=== PATIENT | female | born 1960 | race Caucasian/White ===

== ENCOUNTER 2017-02-19 14:38 | Emergency (ER) | payer OTHER ==
[~2017-02-19 14:38] MED LIST: PSEUCAP67 PO
[2017-02-19 14:44] VITALS: TEMP 36.6
[2017-02-19] MEDS ORDERED: MoRPHine SULFATE 4 MG/ML 1 ML CARP\\VIAL IV STA ×2 (15:03→17:08)
[2017-02-19] MEDS ORDERED: ONDANSETRON INJ 2 MG/ML 2 ML VIAL IV STA (15:03)
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
[2017-02-19 15:28] VITALS: O2SAT 96
[2017-02-19 15:36] LABS: ISTAT HEMOGLOBIN 14.6 g/dl (12.0-16.0); ISTAT IONIZED CALCIUM 1.21 mmol/l (1.12-1.32)
[2017-02-19] MEDS ORDERED: OPTIRAY 320 IV PRN (16:45)
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
[2017-02-19] MEDS ORDERED: OXYCODONE IR HOME PACK PO STA (17:34)
[2017-02-19] MEDS ORDERED: OXYC1TAB3 PO (17:37)
[2017-02-19 18:03] VITALS: BP 136/98; PULSE 85; O2SAT 97
== END 2017-02-19 18:04 | disposition home or self-care (01) ==
LOC: EDBD 14:38 → C.EDD 14:39
DX: S30.1XXA Contusion of abdominal wall, initial encounter (principal); M54.2 Cervicalgia; R10.9 Unspecified abdominal pain; V44.5XXA Car driver injured in collision with heavy transport vehicle or bus in traffic accident, initial encounter; Y92.488 Other paved roadways as the place of occurrence of the external cause

== ENCOUNTER 2017-02-21 22:02 | Emergency (ER) | payer OTHER ==
[~2017-02-21] VITALS: Ht 165.1 cm; Wt 94.6 kg
[~2017-02-21 22:02] MED LIST changes: +OXYC1TAB3 PO; -PSEUCAP67 PO
[2017-02-21 22:03] VITALS: TEMP 36.9; Ht 165.1 cm; Wt 94.6 kg
[2017-02-21 23:36] LABS: BASO % 0.3 %; BASO ABS # 0.03 K/uL (0-0.2); COMPLETE YES; EOS % 2.9 %; HEMATOCRIT 41.3 % (37-47); IG% 0.4 %; LYMPH % 20.7 %; MEAN CELL VOLUME 89.8 fL (80-100); MEAN CORPUSCULAR HEMOGLOBIN 31.3 pg (25-34); MEAN CORPUSCULAR HGB CONC 34.9 g/dl (32-36); MEAN PLATELET VOLUME 9.9 fL (7.4-10.4); MONO % 8.6 %; NEUT % 67.1 %; PLATELET COUNT 236 K/uL (130-400); WHITE BLOOD COUNT 10.16 K/uL (4.8-10.8)
[2017-02-21 23:37] LABS: URINE APPEARANCE CLOUDY (CLEAR); URINE BILIRUBIN NEG (NEG); URINE COLOR DK YELLOW; URINE EPITHELIAL CELL AUTO >30 /lpf (0-5); URINE NITRITE NEG (NEG); URINE PH 5.5 (4.5-7.5); URINE SPECIFIC GRAVITY 1.029 (1.000-1.030); UROBILINOGEN POS (NEG); ZZUR CULT IF INDIC CLEAN CATCH YES
[2017-02-21 23:44] LABS: MANUAL MICROSCOPIC REQUIRED? NO; REVIEW REQ? NO
[2017-02-21 23:53] LABS: BUN/CREATININE RATIO 20.4 (10-20); CALCIUM 9.2 mg/dl (8.5-10.1); CREATININE 0.98 mg/dl (0.60-1.20); POTASSIUM 3.3 mmol/L (3.5-5.1)
[2017-02-22 00:09] LABS: PREG INTERNAL NEGATIVE QC NEG CLEAR BACKGROUND; PREG INTERNAL POSITIVE QC POS CONTROL LINE
[2017-02-22] MEDS ORDERED: CEPHALEXIN 500MG HOME PACK 1 EA BTL PO ONE (00:45)
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
[2017-02-22] MEDS ORDERED: CEPH500C2 PO (00:59)
[2017-02-22 01:20] VITALS: BP 128/77; PULSE 100; O2SAT 98
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
== END 2017-02-22 01:28 | disposition home or self-care (01) ==
LOC: C.EDB 22:02
DX: S00.05XA Superficial foreign body of scalp, initial encounter (principal); S30.1XXA Contusion of abdominal wall, initial encounter; X58.XXXA Exposure to other specified factors, initial encounter; N39.0 Urinary tract infection, site not specified; E87.6 Hypokalemia; Z82.49 Family history of ischemic heart disease and other diseases of the circulatory system

== ENCOUNTER 2017-04-06 10:56 | Inpatient (IN) | payer OTHER ==
[~2017-04-06] VITALS: Ht 165.1 cm; Wt 95.0 kg
[2017-04-06] MEDS ORDERED: CYCLOBENZAPRINE HCL 10 MG TAB PO STA (11:35)
[2017-04-06] MEDS ORDERED: MoRPHine SULFATE 10 MG/ML CARP/VIAL IM STA (11:35)
[2017-04-06] MEDS ORDERED: DEXAMETHASONE SOD INJ 4 MG/ML VIAL IM STA (11:35)
[2017-04-06] MEDS ORDERED: KETOROLAC TROMETHAMINE 60 MG/2 ML VIAL IM ONE (11:45)
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
--- NOTE | 2017-04-06 13:35 | DIAGNOSTIC IMAGING REPORT ---
LUMBAR SPINE W/O CONTRAST HISTORY: Pain severe LBP down R leg some right leg weakness TECHNIQUE: Multiplanar multisequence MRI of the lumbar spine was performed without the use of contrast. COMPARISON: None. FINDINGS: For the purpose of the report the L5-S1 disc space will be located on axial image 23 of 25. Mild degenerative this changes throughout. Vertebral body stature is normal. No bone marrow replacing process. L1-L2: No significant central canal or neural foraminal narrowing. L2-L3: No significant central canal or neural foraminal narrowing. L3-L4: Mild broad-based disc bulge. Minimal impact anterior thecal sac. Neuroforamina are patent bilaterally. L4-L5: Minimal broad-based disc bulge. Minimal impact anterior thecal sac. Neuroforamina are patent bilaterally. L5-S1: No significant central canal or neural foraminal narrowing. IMPRESSION: 1. Minimal broad-based disc bulges L3-L4 and L4-L5. 2. No evidence for significant compromise of the spinal canal or neural foramina. The above report was generated using voice recognition software. It may contain grammatical, syntax or spelling errors. Electronically signed by: Fish Roche M.D. 04/06/2017 1:34 PM Dictated Date/Time: 04/06/2017 1:30 PM
[2017-04-06] MEDS ORDERED: ONDANSETRON INJ 2 MG/ML 2 ML VIAL IV STA (14:06)
[2017-04-06] MEDS ORDERED: HYDROmorphone INJ 1 MG/ML SYR IV ONE (14:15)
[2017-04-06 14:29] LABS: BASO % 0.5 %; BASO ABS # 0.03 K/uL (0-0.2); COMPLETE YES; EOS % 1.5 %; HEMATOCRIT 41.7 % (37-47); IG% 0.8 %; LYMPH % 11.1 %; LYMPH ABS # 0.67 K/uL (1.2-3.4); MEAN CELL VOLUME 89.9 fL (80-100); MEAN CORPUSCULAR HEMOGLOBIN 30.8 pg (25-34); MEAN CORPUSCULAR HGB CONC 34.3 g/dl (32-36); MEAN PLATELET VOLUME 9.5 fL (7.4-10.4); MONO % 2.7 %; NEUT % 83.4 %; PLATELET COUNT 242 K/uL (130-400); RED BLOOD COUNT 4.64 M/uL (4.2-5.4); WHITE BLOOD COUNT 6.02 K/uL (4.8-10.8)
[2017-04-06 14:47] LABS: ALT/SGPT 47 U/L (12-78); AST/SGOT 20 U/L (15-37); BLOOD UREA NITROGEN 17 mg/dl (7-18); BUN/CREATININE RATIO 21.4 (10-20); CALCIUM 8.9 mg/dl (8.5-10.1); CARBON DIOXIDE 27 mmol/L (21-32); CHLORIDE 103 mmol/L (98-107); CREATININE 0.81 mg/dl (0.60-1.20); GLUCOSE 109 mg/dl (70-99); POTASSIUM 3.9 mmol/L (3.5-5.1); SODIUM 135 mmol/L (136-145)
[2017-04-06 14:50] LABS: ALB/GLOB RATIO 1.1 (0.9-2); ALKALINE PHOSPHATASE 101 U/L (45-117)
[2017-04-06] MEDS ORDERED: ONDANSETRON INJ 2 MG/ML 2 ML VIAL IV PRN (15:15)
[2017-04-06] MEDS ORDERED: ALUMINUM/MAGNESIUM/SIMETH (MAALOX MAX) 30 ML UDC PO PRN (15:15)
[2017-04-06] MEDS ORDERED: ACETAMINOPHEN 325 MG TAB PO PRN (15:15)
[2017-04-06] MEDS ORDERED: OXYCODONE/ACETAMINOPHEN 5-325 TAB PO PRN (15:15)
[2017-04-06] MEDS ORDERED: POLYETHYLENE (MIRALAX) 17 GM PACK PO PRN (15:15)
[2017-04-06] MEDS ORDERED: ZOLPIDEM TARTRATE 5 MG TAB PO PRN (15:15)
[2017-04-06] MEDS ORDERED: PANTOprazole SOD 40 MG TAB PO STA (15:21)
--- NOTE | 2017-04-06 15:31 | History and Physical ---
History & Physical Date of Service Apr 06, 2017. History & Physical intractable LBP with disc bulges L3-L4 and L4-L5. [id number]
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
[2017-04-06] MEDS ORDERED: IV FLUIDS COMPLETED PRN (16:15)
[2017-04-06 16:46] VITALS: BP 143/83; PULSE 71; TEMP 36.6; O2SAT 96
[2017-04-06 16:59] LABS: PROTHROMBIN TIME (PATIENT) 10.2 SECONDS (9.0-12.0)
[2017-04-06 17:02] VITALS: BP 143/83; PULSE 71; TEMP 36.6; Ht 165.1 cm; Wt 95.0 kg
[2017-04-06] MEDS ORDERED: PATIENT'S HEIGHT AND/OR WEIGHT NEEDED SCH (17:30)
[2017-04-06] MEDS: ENOXAPARIN 40 MG/0.4 ML SYR SQ SCH (19:14)
[2017-04-06] MEDS: OXYCODONE/ACETAMINOPHEN 5-325 TAB PO PRN (19:31)
[2017-04-06] MEDS: CYCLOBENZAPRINE HCL 10 MG TAB PO SCH (21:07)
[2017-04-06 22:55] VITALS: BP 124/66; PULSE 68; TEMP 36.5; O2SAT 97
[2017-04-07] MEDS: OXYCODONE/ACETAMINOPHEN 5-325 TAB PO PRN (00:02)
[2017-04-07] MEDS ORDERED: MoRPHine SULFATE 4 MG/ML 1 ML CARP\\VIAL ONE (05:23)
[2017-04-07] MEDS ORDERED: NURSING VERBAL MED ORDER ONE (05:30)
[2017-04-07] MEDS ORDERED: MoRPHine SULFATE 4 MG/ML 1 ML CARP\\VIAL IV PRN (06:00)
[2017-04-07 06:27] LABS: BUN/CREATININE RATIO 21.2 (10-20); CALCIUM 9.8 mg/dl (8.5-10.1); CREATININE 0.95 mg/dl (0.60-1.20); MAGNESIUM 2.6 mg/dl (1.8-2.4); POTASSIUM 4.2 mmol/L (3.5-5.1)
[2017-04-07 06:30] LABS: CHOLESTEROL/HDL RATIO 2.4
[2017-04-07 07:10] VITALS: BP 151/90; PULSE 85; TEMP 36.5; O2SAT 96
[2017-04-07 07:20] LABS: ESTIMATED AVERAGE GLUCOSE 108 mg/dl; HA1C FLAG Normal (Normal)
[2017-04-07] MEDS ORDERED: MoRPHine SULFATE 2 MG/ML CARP IV PRN (10:45)
[2017-04-07] MEDS: PANTOprazole SOD 40 MG TAB PO SCH (11:15)
[2017-04-07] MEDS: CYCLOBENZAPRINE HCL 10 MG TAB PO SCH ×2 (11:15→20:53)
[2017-04-07] MEDS: OXYCODONE HCL IR 5 MG TAB (IMMEDIATE RELEASE) PO PRN ×2 (11:16→18:51)
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
[2017-04-07] MEDS: ACETAMINOPHEN 500 MG TAB PO SCH ×2 (12:40→20:53)
[2017-04-07] MEDS: GABAPENTIN 100 MG CAP PO SCH ×2 (14:38→20:53)
[2017-04-07 14:57] VITALS: BP 158/64; PULSE 68; TEMP 36.4; O2SAT 99
[2017-04-07] MEDS: MoRPHine SULFATE 4 MG/ML 1 ML CARP\\VIAL IV PRN ×2 (16:50→23:58)
[2017-04-07] MEDS: ENOXAPARIN 40 MG/0.4 ML SYR SQ SCH (18:50)
[2017-04-07] MEDS: DEXAMETHASONE 4 MG TAB PO SCH (20:53)
[2017-04-07 23:22] VITALS: BP 133/76; PULSE 68; TEMP 36.7; O2SAT 99
[2017-04-08] MEDS: OXYCODONE HCL IR 5 MG TAB (IMMEDIATE RELEASE) PO PRN ×2 (01:26→07:38)
[2017-04-08] MEDS: ACETAMINOPHEN 500 MG TAB PO SCH ×3 (04:32→20:44)
[2017-04-08] MEDS: MoRPHine SULFATE 4 MG/ML 1 ML CARP\\VIAL IV PRN (04:38)
[2017-04-08 07:31] VITALS: BP 144/89; PULSE 86; TEMP 36.7; O2SAT 98
[2017-04-08] MEDS: CYCLOBENZAPRINE HCL 10 MG TAB PO SCH ×2 (08:33→20:44)
[2017-04-08] MEDS: GABAPENTIN 100 MG CAP PO SCH ×3 (08:33→20:44)
[2017-04-08] MEDS: DEXAMETHASONE 4 MG TAB PO SCH ×2 (08:33→20:44)
[2017-04-08] MEDS: PANTOprazole SOD 40 MG TAB PO SCH (08:33)
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
[2017-04-08] MEDS: SODIUM CHLORIDE 0.9% 1000ML 1,000 ML IV SCH (12:56)
[2017-04-08] MEDS ORDERED: NALOXONE HCL 0.4 MG/1 ML VIAL/CARP IV PRN (13:00)
--- NOTE | 2017-04-08 13:44 | Anesthesiology Progress Note ---
Anesthesia Progress Note Date of Service Apr 08, 2017. Progress Notes This is a 56y/o w obese female presenting for lumbar spine decompression/ discectomy for disc herniation.PMHx is sig for IRBBB on old EKG(will repeat) and radiculopathy to right leg.Discussed anesthesia w/ pt,risks vs benefits,all questions answered.Informed consent obtained. ASA 2
[2017-04-08] MEDS: HYDROmorphone HCL 0.5MG/ML 50 ML CASSETTE IV PRN ×3 (14:11→23:15)
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
--- NOTE | 2017-04-08 14:42 | DIAGNOSTIC IMAGING REPORT ---
LUMBAR SPINE 2 OR 3 VIEWS CLINICAL HISTORY: back pain, standing views COMPARISON STUDY: Lumbar spine MRI 04/06/2017. FINDINGS: No fracture or subluxation. Mild disc space narrowing at L5-S1 and L4-L5, unchanged. Small endplate osteophytes seen within the lumbar spine. IMPRESSION: 1. No fracture or subluxation within the lumbar spine. 2. Mild degenerative disc disease within the lower lumbar spine. Electronically signed by: Jose Antonio Jimenez M.D. 04/08/2017 2:41 PM Dictated Date/Time: 04/08/2017 2:39 PM
[2017-04-08] MEDS: MAGNESIUM HYDROXIDE SUSP 30 ML UDC PO PRN (14:46)
[2017-04-08 15:01] VITALS: BP 147/89; PULSE 84; TEMP 36.9; O2SAT 94
[2017-04-08 22:54] VITALS: BP 154/90; PULSE 84; TEMP 36.9; O2SAT 94
[2017-04-09] VITALS (7 sets, daily range): BP systolic 105–168; BP diastolic 78–96; PULSE 64–81; TEMP 36.4–36.8; O2SAT 94–97
[2017-04-09] MEDS: ACETAMINOPHEN 500 MG TAB PO SCH ×3 (03:29→20:30)
[2017-04-09 06:46] LABS: CREATININE 0.93 mg/dl (0.60-1.20)
[2017-04-09] MEDS: HYDROmorphone HCL 0.5MG/ML 50 ML CASSETTE IV PRN ×4 (07:05→23:01)
[2017-04-09] MEDS: CYCLOBENZAPRINE HCL 10 MG TAB PO SCH ×2 (07:31→20:31)
[2017-04-09] MEDS: GABAPENTIN 100 MG CAP PO SCH ×3 (07:31→20:32)
[2017-04-09] MEDS: DEXAMETHASONE 4 MG TAB PO SCH (07:31)
[2017-04-09] MEDS: PANTOprazole SOD 40 MG TAB PO SCH (07:31)
[2017-04-09] MEDS: SODIUM CHLORIDE 0.9% 1000ML 1,000 ML IV SCH (08:30)
[2017-04-09] MEDS ORDERED: FENTANYL CITRATE INJ 50 MCG/1 ML 2 ML VIAL ONE ×4 (12:15→15:03)
[2017-04-09] MEDS ORDERED: MIDAZOLAM HCL 1 MG/ML 2ML VIAL ONE (12:15)
--- NOTE | 2017-04-09 12:21 | History & Physical Bridge Note ---
H&P Re-Evaluation Bridge Note: I have examined the patient, reviewed the History & Physical and in the interval since the performance of the History & Physical I have noted the following changes of clinical significance: No changes noted
[2017-04-09] MEDS ORDERED: CEFAZOLIN SOD 2000MG/10 ML IV PUSH IV ONE (12:34)
[2017-04-09] MEDS ORDERED: ONDANSETRON INJ 2 MG/ML 2 ML VIAL IV PRN ×2 (12:45→15:15)
[2017-04-09] MEDS ORDERED: NURSING VERBAL MED ORDER STA (12:45)
[2017-04-09] MEDS ORDERED: HYDROmorphone INJ 1 MG/ML SYR IV PRN ×2 (12:45→15:45)
[2017-04-09] MEDS ORDERED: EpHEDrine SULFATE INJ 50 MG/ML AMP IV PRN (12:45)
[2017-04-09] MEDS ORDERED: ATROPINE SULFATE 0.1 MG/ML 5ML SYR IV PRN (12:45)
[2017-04-09] MEDS ORDERED: BACITRACIN 50000 UNIT VIAL ONE (12:54)
[2017-04-09] MEDS ORDERED: BUPIVACAINE/EPINEPHRINE 0.5% MPF 1:200,000 30 ML VIAL ONE (12:54)
[2017-04-09] MEDS ORDERED: HYDROmorphone INJ 2 MG/ML SYR/VIAL ONE (13:45)
[2017-04-09] MEDS ORDERED: PROPOFOL IV EMULSION 10 MG/ML 20 ML VIAL IV ONE (14:03)
[2017-04-09] MEDS ORDERED: LIDOCAINE HCL 2% 2 ML VIAL (20MG/ML) ONE (14:03)
[2017-04-09] MEDS ORDERED: DEXAMETHASONE SOD INJ 4 MG/ML VIAL ONE (14:03)
[2017-04-09] MEDS ORDERED: ROCURONIUM BROMIDE 10 MG/ML 5 ML VIAL IV ONE (14:26)
[2017-04-09] MEDS ORDERED: FLOSEAL HEMOSTATIC MATRIX 10ML TOP ONE (14:56)
[2017-04-09] MEDS ORDERED: ONDANSETRON INJ 2 MG/ML 2 ML VIAL ONE (14:57)
[2017-04-09] MEDS ORDERED: GLYCOPYRROLATE INJ 0.2 MG/ML VIAL ONE (14:57)
[2017-04-09] MEDS ORDERED: NEOSTIGMINE METHYLSULFATE 1 MG/ML 10ML VIAL ONE (14:57)
[2017-04-09] MEDS ORDERED: SODIUM CHLORIDE 0.9% 1000ML 1,000 ML IV SCH (15:02)
--- NOTE | 2017-04-09 15:10 | [facility] Operative Report ---
Operative Report Operative Date Apr 09, 2017. Pre-Operative Diagnosis foraminal disc herniation L5-S1 on the right Post-Operative Diagnosis same Procedure(s) Performed #1 lumbar decompression medial facetectomy foraminotomies L5-S1. #2 posterior spinal fusion L5-S1. #3 placement posterior instrumentation L5-S1. #4 interbody fusion L5-S1. #5 placement peek cage 12 x 26 mm at L5-S1. #6 placement locally harvested morcellized autograft in the posterior gutters. #7 placement of ostial amp bone graft in the interbody space and posterior lateral gutters. Surgeon Dr. Hernandez Technician Anatomic Pathology Surgeon(s) Shanna Alfred PA-C Estimated Blood Loss 150ml Findings Foraminal herniated was pulposus L5-S1 on the right Specimens none per surgeon Description of Procedure Patient was met with preoperatively case discussed all questions addressed. After informed consent was obtained patient was taken back to the operative suite underwent intubation placed in a prone position the Sachin table top Josesito frame. All bony prominences well-padded eyes inspected to ensure there is no external pressure placed upon them. This point lumbar spines prepped draped nostril fashion. Sharp dissection with the assistance of Bovie cautery was performed onto an exposing the lamina and transverse processes of L5 and sacral alar bilaterally. Then performed a complete laminectomy of L5 the foraminotomies on the right involving a complete facetectomy to adequately decompress the severely compressed L5 nerve root on the right. Massive amounts of disc material were noted within the foramen. After complete decompression pedicle screws were then placed in L5 and S1 levels bilaterally with assistance of fluoroscopy the purposes avelino placed. Through a transforaminal approach on the right a complete discectomy was performed and endplates curetted to subcortical bleeding bone and a 12 x 26 mm peek cage filled with ostial amp bone graft tapped in position. The rods were then compressed locked into final position bilaterally the transverse processes of L5 and sacral alar burred to subcortical bleeding bone. Remaining ostial amp and locally harvested morcellized autograft was placed in the posterior lateral gutters. 15 round ISAMAR drain inserted. Incision then closed with 1 Vicryl fascia 2-0 Vicryl subcutaneous cutaneously 4 Monocryl for final skin closure Steri-Strips sterile dressings placed. Patient we can take PACU stable condition. Please note Shanna Barragan was present at the entire procedure involved in patient positioning complex portions of the surgery and final skin closure. I attest to the content of the Intraoperative Record and any orders documented therein. Any exceptions are noted below.
[2017-04-09] MEDS ORDERED: LORAZEPAM 0.5 MG TAB PO PRN (15:15)
[2017-04-09] MEDS ORDERED: DC PCA PRN (15:15)
[2017-04-09] MEDS ORDERED: MAGNESIUM HYDROXIDE SUSP 30 ML UDC PO PRN (15:15)
[2017-04-09] MEDS ORDERED: FAMOTIDINE 20 MG TAB PO PRN (15:15)
[2017-04-09] MEDS ORDERED: ALUMINUM/MAGNESIUM SUSP 30 ML UDC PO PRN (15:15)
[2017-04-09] MEDS ORDERED: ACETAMINOPHEN 500 MG TAB PO PRN (15:15)
[2017-04-09] MEDS ORDERED: ACETAMINOPHEN IV 100 ML IV PRN (15:15)
[2017-04-09] MEDS ORDERED: PROMETHAZINE HCL INJ 12.5 MG in SODIUM CHLORIDE 0.9% 50ML 50 ML IV PRN (15:15)
[2017-04-09] MEDS ORDERED: DO NOT ADMINISTER PNEUMOCOCCAL VACCINE PRN ×2 (15:15)
[2017-04-09] MEDS ORDERED: HYDROmorphone HCL 0.5MG/ML 50 ML CASSETTE IV PRN (15:15)
[2017-04-09] MEDS ORDERED: DO NOT ADMINISTER FLU VACCINE PRN ×3 (15:15)
[2017-04-09] MEDS ORDERED: hydrOXYzine HCL 25 MG TAB PO PRN (15:15)
[2017-04-09] MEDS ORDERED: BISACODYL 10 MG SUPP PR PRN (15:15)
[2017-04-09] MEDS ORDERED: METOCLOPRAMIDE HCL INJ 5 MG/ML 2 ML VIAL IV PRN (15:15)
[2017-04-09] MEDS ORDERED: LORAZEPAM INJ 0.5 MG in SYRINGE 0 ML IV PRN (15:15)
[2017-04-09] MEDS ORDERED: NALOXONE HCL 0.4 MG/1 ML VIAL/CARP IV PRN ×2 (15:15)
[2017-04-09] MEDS ORDERED: SOD PHOSPHATE/SOD BIPHOSPHATE ENEMA 132 ML BTL PR PRN (15:15)
--- NOTE | 2017-04-09 15:49 | DIAGNOSTIC IMAGING REPORT ---
LUMBAR SPINE, INTRAOPERATIVE FLUOROSCOPY HISTORY: L5-S1 posterior decompression and fusion. FLUOROSCOPY TIME: 16 seconds. FINDINGS: Intraoperative fluoroscopy was provided for the lumbar spine. 2 fluoroscopic spot images were obtained. L5-S1 posterior decompression fusion with pedicle screws and rods. The hardware appears intact. IMPRESSION: Fluoroscopy provided for a L5-S1 posterior decompression and fusion. Electronically signed by: Jose Antonio Jimenez M.D. 04/09/2017 3:48 PM Dictated Date/Time: 04/09/2017 3:47 PM
[2017-04-09] MEDS: FENTANYL CITRATE INJ 50 MCG/1 ML 2 ML VIAL IV PRN ×2 (15:52→15:57)
[2017-04-09] MEDS ORDERED: NURSING VERBAL MED ORDER ONE (16:00)
--- NOTE | 2017-04-09 16:05 | Anesthesiology Progress Note ---
Anesthesia Post Op Note Date & Time Apr 09, 2017 at 16:05 Vital Signs Pain Intensity: 7 Vital Signs Past 12 Hours Date Time Temp Pulse Resp B/P (MAP) Pulse Ox O2 Delivery O2 Flow Rate FiO2 04/09/17 15:55 67 12 155/96 100 Nasal Cannula 4 04/09/17 15:45 75 14 159/96 100 Oxymask 10 04/09/17 15:35 78 14 157/94 100 Oxymask 10 04/09/17 15:29 36.0 67 12 149/87 98 Oxymask 10 04/09/17 09:12 36.8 78 18 138/78 (98) 94 Room Air 04/09/17 07:30 Room Air Notes Mental Status: alert / awake / arousable, participated in evaluation Pt Amnestic to Procedure: Yes Nausea / Vomiting: adequately controlled Pain: adequately controlled Airway Patency, RR, SpO2: stable & adequate BP & HR: stable & adequate Hydration State: stable & adequate Anesthetic Complications: no major complications apparent
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
[2017-04-09] MEDS ORDERED: CYANOCOBALAMIN 500 MCG TAB (VIT B-12) PO ONE (17:15)
[2017-04-09] MEDS: LACTATED RINGER'S 1000ML 1,000 ML IV SCH ×3 (17:22→23:20)
[2017-04-09] MEDS ORDERED: BACITRACIN OP OINT PER APPLICATION CHARGE OP SCH (17:30)
--- NOTE | 2017-04-09 18:27 | Anesthesiology Progress Note ---
Anesthesia Progress Note Date of Service Apr 09, 2017. Progress Notes The patient underwent back surgery today and appeared to be signed out of the PACU without any issues. I was called by the nurse on the floor that the patient felt like she had something in her left eye. On exam the patient's left eye appeared red and teary. On gross exam, nothing appeared to be in her eye. The patient likely has a corneal abrasion. The patient was counseled not to touch her eye. She will also be given bacitracin eye ointment starting tonight. The patient was told to let the anesthesia team know tomorrow if her eye is not improving or getting worse.
[2017-04-09] MEDS: BACITRACIN OP OINT 3.5 GM TUBE OPL SCH (20:29)
[2017-04-09] MEDS: CEFAZOLIN IV 2,000 MG in SYRINGE 0 ML IV SCH ×2 (20:30→21:33)
[2017-04-09] MEDS: MAGNESIUM HYDROXIDE SUSP 30 ML UDC PO PRN (20:30)
[2017-04-09] MEDS: DOCUSATE SODIUM/SENNA 50/8.6MG TAB PO SCH (20:31)
[2017-04-09] MEDS ORDERED: BACITRACIN OP OINT 3.5 GM TUBE OPL SCH (21:00)
[2017-04-09] MEDS: DEXAMETHASONE INJ 6 MG in SYRINGE 0 ML IV SCH (21:32)
[2017-04-10 03:34] VITALS: BP 116/69; PULSE 71; TEMP 36.9; O2SAT 96
[2017-04-10] MEDS: ACETAMINOPHEN 500 MG TAB PO SCH ×4 (04:00→20:24)
[2017-04-10] MEDS: LACTATED RINGER'S 1000ML 1,000 ML IV SCH (05:31)
[2017-04-10] MEDS: CEFAZOLIN IV 2,000 MG in SYRINGE 0 ML IV SCH (05:32)
[2017-04-10] MEDS: DEXAMETHASONE INJ 6 MG in SYRINGE 0 ML IV SCH ×2 (05:32→13:40)
[2017-04-10] MEDS ORDERED: OXYCODONE HCL IR 5 MG TAB (IMMEDIATE RELEASE) PO PRN (06:00)
[2017-04-10] MEDS ORDERED: HYDROmorphone INJ 0.5 MG/0.5 ML SYR IV PRN (06:00)
[2017-04-10 06:10] LABS: COMPLETE YES; HEMATOCRIT 35.8 % (37-47); IG% 0.5 %; LYMPH ABS # 0.82 K/uL (1.2-3.4); MEAN CELL VOLUME 91.1 fL (80-100); MEAN CORPUSCULAR HEMOGLOBIN 29.8 pg (25-34); MEAN CORPUSCULAR HGB CONC 32.7 g/dl (32-36); MEAN PLATELET VOLUME 9.6 fL (7.4-10.4); MONO % 8.1 %; NEUT % 85.4 %; PLATELET COUNT 230 K/uL (130-400); RED BLOOD COUNT 3.93 M/uL (4.2-5.4); WHITE BLOOD COUNT 13.64 K/uL (4.8-10.8)
[2017-04-10 06:46] LABS: BUN/CREATININE RATIO 25.2 (10-20); CALCIUM 8.2 mg/dl (8.5-10.1); CREATININE 0.73 mg/dl (0.60-1.20); POTASSIUM 4.1 mmol/L (3.5-5.1)
[2017-04-10 07:27] VITALS: BP 152/92; PULSE 73; TEMP 36.6; O2SAT 94
--- NOTE | 2017-04-10 07:45 | Anesthesiology Progress Note ---
Anesthesia Post Op Note Date & Time Apr 10, 2017 at 07:45 Vital Signs Pain Intensity: 5.0 Vital Signs Past 12 Hours Date Time Temp Pulse Resp B/P (MAP) Pulse Ox O2 Delivery O2 Flow Rate FiO2 04/10/17 07:27 36.6 73 16 152/92 (112) 94 Room Air 04/10/17 03:34 36.9 71 14 116/69 (85) 96 Room Air 04/09/17 23:55 Room Air 04/09/17 23:03 36.4 71 14 129/87 (101) 95 Room Air Notes Mental Status: alert / awake / arousable, participated in evaluation Pt Amnestic to Procedure: Yes Nausea / Vomiting: adequately controlled Pain: adequately controlled Airway Patency, RR, SpO2: stable & adequate BP & HR: stable & adequate Hydration State: stable & adequate Anesthetic Complications: no major complications apparent
[2017-04-10] MEDS: BACITRACIN OP OINT 3.5 GM TUBE OPL SCH ×3 (07:50→15:28)
[2017-04-10] MEDS: CYCLOBENZAPRINE HCL 10 MG TAB PO SCH ×2 (09:00→20:24)
[2017-04-10] MEDS: CYANOCOBALAMIN 500 MCG TAB (VIT B-12) PO SCH (09:00)
[2017-04-10] MEDS: PANTOprazole SOD 40 MG TAB PO SCH (09:00)
[2017-04-10] MEDS: MAGNESIUM HYDROXIDE SUSP 30 ML UDC PO PRN (09:01)
[2017-04-10] MEDS: GABAPENTIN 100 MG CAP PO SCH ×3 (09:01→20:24)
[2017-04-10] MEDS ORDERED: RXC5 PO (09:09)
--- NOTE | 2017-04-10 09:10 | Discharge Instructions ---
Discharge Instructions Date of Service Apr 10, 2017. Admission Reason for Admission: Right Leg Weakness Discharge Discharge Diagnosis / Problem: lumbar stenosis Discharge Goals Goal(s): Improve function Activity Recommendations Activity Limitations: per Instructions/Follow-up section . Instructions / Follow-Up Instructions / Follow-Up ACTIVITY RECOMMENDATIONS: SELF CARE INSTRUCTIONS AFTER THORACIC/LUMBAR FUSIONS 1. You may walk to your tolerance. It is good exercise for your legs and back. Expect some back and intermittent leg aches and pains. 2. You may perform "counter-top" level activities (make a sandwich, tay with a project, etc.). 3. No bending or lifting of more than 10 pounds or back twisting of any nature (roll like a log when turning in bed). 4. You may ride in a car for 20-30 minutes at a time. No driving until after your first visit with your doctor. 5. Frequent changes of position and restricting sitting to 30 minutes at a time will help limit the amount of back spasms and stiffness you may experience. 6. You may discontinue the use of ambulatory aids (cane, crutches, etc.) once your strength and confidence allow. 7. 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 Do not take a tub bath, sit in a hot tub or go into a swimming pool until after your first recheck in the office. SPECIAL CARE INSTRUCTIONS: VERY IMPORTANT TO READ AND REVIEW A. Your surgical incision has been closed with a cosmetic suture under the skin that will dissolve in about 6 weeks. In 14 days, you can use a pair of clean scissors and cut the suture that is left outside of the skin at the ends of your incision. 1. The small skin tapes can be removed 7 days after surgery if they have not fallen off by that point. 2. You may keep the wound open to air as much as possible to promote healing after post-op day number 5 unless told otherwise by your doctor. 3. If you think the wound looks like it is becoming infected (redness or worsening drainage) and/or you are experiencing fever, chill or worsening back pain and muscle spasms, contact the office so that we may evaluate you as soon as possible. B. Complications are uncommon, but please contact us if you have any signs or symptoms of: 1. wound infection (fever higher than 102.5 degrees F, redness, separation of wound, drainage, or increasing pain from the incision) 2. blood clots in legs (pain, swelling, redness and warmth in legs) 3. urinary tract infection (fever higher than 102.5 degrees F, burning upon urination or increased frequency of urination) 4. nerve problems (inability to walk on your toes or heels, numbness, loss of bowel or bladder control) 5. any other symptoms that concern you C. Please call the office at if you have any concerns or questions about your operation or recovery. D. No smoking! Smoking drastically decreases the chance of a solid fusion. E. Do not take any anti-inflammatory medications (Indocin, Advil, Motrin, Aspirin, Naprosyn, etc.) as these may inhibit the chance of a solid fusion. Tylenol is okay to take for pain. MANAGING PAIN AFTER SPINAL SURGERY 1. Narcotic medication is intended for short-term use and will be provided for surgical pain. Surgical pain usually lasts for a period of 4-6 weeks. Narcotic medication includes Percocet, Vicodin, Darvocet, Tylenol #3 or Lortab. 2. Longer-term pain is more appropriately treated with non-narcotic medication such as Tylenol ES. 3. Muscle spasm is not appropriately treated with narcotics. Muscle relaxers such as Soma, Flexeril or Skelaxin can be used along with Tylenol ES. 4. Remember that we all live with some "aches and pains". This is not unusual or uncommon after an injury or as we get older. a. Back pain is expected and may include muscle spasms for 4 to 6 weeks after surgery. The pain should gradually improve. If the pain worsens for no apparent reason, please contact the office. b. Intermittent leg pain may also be experienced and should not be concerned about unless it worsens for no apparent reason. If so, please contact the office. 5. We will provide appropriate medication within the normal guidelines of their prescribed use. We will also be very cautious and aware of potential abuse and extended duration of patients' medication needs. a. Pain medications are for your comfort and to assist with sleep and rest so that the tissue can heal. They are not provided in order to return to normal activity and should not be used through the day. To do so or worsening pain at night can result from ongoing tissue damage and development of tolerance to the prescribed medicine. 6. Please allow 2-3 days to process refills. Prescriptions will not be mailed but must be picked up at the office. FOLLOW UP VISIT: Keep your scheduled follow-up appointment. Any questions, please call the office at . Current Hospital Diet Patient's current hospital diet: AHA Diet (Heart Healthy) Discharge Diet Recommended Diet: Regular Diet Procedures Procedures Performed: #1 lumbar decompression medial facetectomy foraminotomies L5-S1. #2 posterior spinal fusion L5-S1. #3 placement posterior instrumentation L5-S1. #4 interbody fusion L5-S1. #5 placement peek cage 12 x 26 mm at L5-S1. #6 placement locally harvested morcellized autograft in the posterior gutters. #7 placement of ostial amp bone graft in the interbody space and posterior lateral gutters. Pending Studies Studies pending at discharge: no Laboratory Results Hemoglobin A1c Test 04/06/17 14:15 Range/Units Estimated Average Glucose 108 mg/dl Hemoglobin A1c 5.4 4.5-5.6 % Lipid Panel Test 04/07/17 05:12 Range/Units Triglycerides Level 20 0-150 mg/dl Cholesterol Level 165 0-200 mg/dl HDL Cholesterol 70 mg/dl Cholesterol/HDL Ratio 2.4 LDL Cholesterol, Calculated 91 mg/dl Medical Emergencies . Who to Call and When: Medical Emergencies: If at any time you feel your situation is an emergency, please call 911 immediately. . Non-Emergent Contact Non-Emergency issues call your: Primary Care Provider . "Provider Documentation" section prepared by Leo Hernandez. . VTE Core Measure Inpt VTE Proph given/why not?: Amari Petty, SCD's
[2017-04-10] MEDS ORDERED: NURSING VERBAL MED ORDER ONE (09:45)
[2017-04-10 12:12] VITALS: BP 123/78; PULSE 84; TEMP 36.8; O2SAT 97
--- NOTE | 2017-04-10 12:48 | Progress Note ---
Progress Note Date of Service Apr 10, 2017. Progress Note Patient is status post lumbar decompression fusion. Today her right leg symptoms are markedly improved. Still struggling with some weakness particularly with dorsiflexion on the right. She is otherwise comfortable. Vital signs are stable. On exam she is in chair at bedside as good strength testing. Assessment status post lumbar decompression fusion. Plan at this time we'll initiate physical therapy continue advance her bowel regimen anticipate home tomorrow.
[2017-04-10 15:17] VITALS: BP 123/78; PULSE 84; TEMP 36.8; O2SAT 97
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
[2017-04-10] MEDS: DOCUSATE SODIUM/SENNA 50/8.6MG TAB PO SCH (20:24)
[2017-04-10 23:29] VITALS: BP 138/89; PULSE 70; TEMP 36.3; O2SAT 97
[2017-04-11 02:49] VITALS: BP 157/105; PULSE 78; TEMP 36.4; O2SAT 96
[2017-04-11] MEDS: ACETAMINOPHEN 500 MG TAB PO SCH ×2 (03:58→12:19)
[2017-04-11 03:59] VITALS: BP 125/81; PULSE 69
[2017-04-11 05:55] VITALS: BP 142/91; PULSE 72; TEMP 36.4; O2SAT 97
[2017-04-11] MEDS: POLYETHYLENE (MIRALAX) 17 GM PACK PO SCH ×2 (06:05→12:18)
[2017-04-11] MEDS: MAGNESIUM HYDROXIDE SUSP 30 ML UDC PO PRN (07:10)
[2017-04-11] MEDS: BACITRACIN OP OINT 3.5 GM TUBE OPL SCH ×2 (07:11→11:56)
[2017-04-11] MEDS: CYCLOBENZAPRINE HCL 10 MG TAB PO SCH (07:48)
[2017-04-11] MEDS: CYANOCOBALAMIN 500 MCG TAB (VIT B-12) PO SCH (07:48)
[2017-04-11] MEDS: GABAPENTIN 100 MG CAP PO SCH ×2 (07:49→13:31)
[2017-04-11] MEDS: PANTOprazole SOD 40 MG TAB PO SCH (09:06)
--- NOTE | 2017-04-11 11:45 | Discharge Summary ---
Orthopedic Discharge Summary Admission Date/Reason Apr 08, 2017 at 14:54 Right Leg Weakness. Discharge Date/Disposition Apr 11, 2017 Home Diagnosis Principal Diagnosis: Lumbar spinal stenosis Admission Physical Exam As per Admitting History & Physical. Hospital Course Patient was admitted the hospital with severe right leg pain and inability to ambulate. On after exam and imaging we elected to undergo lumbar decompression fusion. Postop day #1 her leg symptoms are markedly improved she is in complaining halls she progressed nicely through postop day #2. ISAMAR drain decreased appropriately. Subsequently she was discharged home. Discharge orders and instructions can be found the chart for further review. Discharge Instructions Please refer to the electronic Patient Visit Report (Discharge Instructions) for additional information.
[2017-04-11 12:53] VITALS: BP 142/91; PULSE 72; TEMP 36.4; O2SAT 97
[2017-04-11] MEDS ORDERED: NURSING VERBAL MED ORDER ONE (13:45)
[2017-04-11 13:56] VITALS: BP 118/80; PULSE 93; TEMP 36.9; O2SAT 95
[2017-04-11 15:35] VITALS: BP 112/74; PULSE 93; TEMP 36.7; O2SAT 97
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
== END 2017-04-11 16:45 | disposition home or self-care (01) | DRG 455 ==
LOC: C.EDB 10:58 → C.MSW 15:21 → ENRESERV 16:01 → OBSVTOIN 04-08 14:54
PROVIDERS: ADMIT Hospitalist; ATTEND Internal Medicine
PROC: 0SG3071 Fusion of Lumbosacral Joint with Autologous Tissue Substitute, Posterior Approach, Posterior Column, Open Approach (ICD-10-PCS; principal; 2017-04-09 12:45)
PROC: 0SG30AJ Fusion of Lumbosacral Joint with Interbody Fusion Device, Posterior Approach, Anterior Column, Open Approach (ICD-10-PCS; principal; 2017-04-09 12:45)
PROC: 01NB0ZZ Release Lumbar Nerve, Open Approach (ICD-10-PCS; principal; 2017-04-09 12:45)
PROC: 0ST40ZZ Resection of Lumbosacral Disc, Open Approach (ICD-10-PCS; principal; 2017-04-09 12:45)
DX: M51.17 Intervertebral disc disorders with radiculopathy, lumbosacral region (principal); I10 Essential (primary) hypertension; S05.02XA Injury of conjunctiva and corneal abrasion without foreign body, left eye, initial encounter; X58.XXXA Exposure to other specified factors, initial encounter; Y92.239 Unspecified place in hospital as the place of occurrence of the external cause; E66.9 Obesity, unspecified; Z68.34 Body mass index [BMI] 34.0-34.9, adult; Z82.49 Family history of ischemic heart disease and other diseases of the circulatory system